=== PATIENT | female | born 1975 ===

== ENCOUNTER → 2023-12-08 06:30 | Day surgery (SDC) | payer BC, SELFPAY | LOC: GI 06:30 | PROVIDERS: ATTENDING PHYSICIAN Internal Medicine Gastroenterology | DX: R10.84 Generalized abdominal pain (principal); R93.3 Abnormal findings on diagnostic imaging of other parts of digestive tract; K64.0 First degree hemorrhoids; D12.0 Benign neoplasm of cecum; K63.5 Polyp of colon; R12 Heartburn; K29.50 Unspecified chronic gastritis without bleeding; K20.80 Other esophagitis without bleeding | CPT/HCPCS: 45385; 45380; 43239; 88305; 88342 ==